=== PATIENT | male | born 1975 | race American Indian/Alaskan Native ===

== ENCOUNTER 2018-09-03 15:43 | Emergency (ER) | payer OTHER ==
--- NOTE | 2018-09-03 16:09 | Emergency Department Report ---
Chief Complaint: Sickle Cell Crisis Stated Complaint: CHEST PAIN/SICKLE CELL CRISIS Time Seen by Provider: 09/03/18 16:06 - HPI History of Present Illness: Pt has a hx sickle cell present with chest pain for a week has associated SOB and states it hurts to take a deep breath he states he was last hospitalized for sickle cell 1 year ago has not been taking sickle cell medications for three years VSS MSE complete MSE screening note: Focused history and physical exam performed. ED Disposition for MSE Condition: Stable
[2018-09-03 16:56] LABS: Basophils # (Auto) 0.1 K/mm3 (0.0-0.1); Eosinophils # (Auto) 0.3 K/mm3 (0.0-0.4); Eosinophils % (Auto) 4.1 % (0.0-4.3); Hematocrit 45.3 % (35.5-45.6); Hemoglobin 15.3 gm/dl (11.8-15.2); Lymphocytes # (Auto) 1.9 K/mm3 (1.2-5.4); Lymphocytes % (Auto) 28.9 % (13.4-35.0); Mean Corpuscular HGB Conc 34 % (32-34); Mean Corpuscular Volume 90 fl (84-94); Monocytes # (Auto) 0.5 K/mm3 (0.0-0.8); Monocytes % (Auto) 7.6 % (0.0-7.3); Platelet Count 270 K/mm3 (140-440); Red Blood Count 5.01 M/mm3 (3.65-5.03); Red Cell Distribution Width 14.3 % (13.2-15.2)
[2018-09-03 17:10] LABS: Alanine Aminotransferase 18 units/L (7-56); Albumin 4.2 g/dL (3.9-5); BUN/Creatinine Ratio 6; Blood Urea Nitrogen 4 mg/dL (9-20); Calcium 9.2 mg/dL (8.4-10.2); Hemolysis Index 14
--- NOTE | 2018-09-03 18:03 | XRay Report ---
PROCEDURE: XR CHEST ROUTINE 2V TECHNIQUE: PA and lateral views were obtained. HISTORY: cp, sickle cell COMPARISONS: FINDINGS: Heart size and pulmonary vasculature appear normal. No evidence of pulmonary edema pleural effusion o r infiltrate or mass. No acute bone abnormalities are visualized. IMPRESSION: Negative exam. This document is electronically signed by Phu Paz MD., September 03 2018 06:01:24 PM ET
[2018-09-03] MEDS ORDERED: NACL 0.9% 500 ML 500 ML IV ONE (19:46)
[2018-09-03] MEDS ORDERED: MORPHINE IV ONE (19:47)
[2018-09-03] MEDS ORDERED: TORADOL IV ONE (19:47)
--- NOTE | 2018-09-03 20:01 | Emergency Department Report ---
ED Chest Pain HPI - General Chief Complaint: Sickle Cell Crisis Stated Complaint: CHEST PAIN/SICKLE CELL CRISIS Time Seen by Provider: 09/03/18 16:06 Source: patient Mode of arrival: Ambulatory Limitations: No Limitations - History of Present Illness Initial Comments: 43-year-old [facility] male presents to the emergency department with a one-week history of midsternal nonradiating chest pain. The patient also says that he has a history of sickle cell disease. 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 He has not taken anything for his symptoms prior to arrival. He is an occasional smoker. He denies any family history of early cardiac disease. He denies any lower extremity swelling, back pain, fever, nausea, vomiting or diaphoresis. Severity scale (0 -10): 10 - Related Data Allergies Allergy/AdvReac Type Severity Reaction Status Date / Time No Known Allergies Allergy Verified 09/03/18 15:47 Heart Score - HEART Score History: Slightly suspicious EKG: Normal Age: < 45 Risk factors: 1-2 risk factors Troponin: < normal limit HEART Score: 1 - Critical Actions Critical Actions: 0-3 pts:0.9-1.7%risk of adverse cardiac event.Candidate for discharge ED Review of Systems ROS: Stated complaint: CHEST PAIN/SICKLE CELL CRISIS Other details as noted in HPI Comment: All other systems reviewed and negative Constitutional: denies: chills, fever Eyes: denies: eye pain, vision change ENT: denies: ear pain, throat pain Respiratory: denies: cough, shortness of breath Cardiovascular: chest pain. denies: palpitations Gastrointestinal: denies: abdominal pain, vomiting Genitourinary: denies: dysuria, frequency Musculoskeletal: denies: back pain, arthralgia Skin: denies: rash, lesions Neurological: denies: headache, weakness ED Past Medical Hx - Past Medical History Hx Sickle Cell Disease: Yes - Surgical History Past Surgical History?: No - Social History Smoking Status: Current Every Day Smoker Substance Use Type: None ED Physical Exam - General Limitations: No Limitations - Other Other exam information: GENERAL: The patient is well-developed well-nourished. HEENT: Normocephalic. Atraumatic. Patient has moist mucous membranes. EYES: Extraocular motions are intact. Pupils are equal and reactive to light bilaterally. NECK: Supple. Trachea is midline. CHEST/LUNGS: Clear to auscultation. There is no respiratory distress noted. Midsternal chest pain is reproducible to palpation of the chest wall. No crepitus or deformity. HEART/CARDIOVASCULAR: Regular. There is no tachycardia. There is no obvious murmur. ABDOMEN: Abdomen is soft, nontender. Patient has normal bowel sounds. There is no abdominal distention. SKIN: Skin is warm and dry. NEURO: The patient is awake, alert, and oriented. The patient is cooperative. The patient has no focal neurologic deficits. The patient has normal speech. MUSCULOSKELETAL: There is no tenderness or deformity. There is no evidence of acute injury. ED Course Vital Signs 09/03/18 09/03/18 09/03/18 16:06 19:46 20:00 Temperature 97.3 F L 97.8 F Pulse Rate 72 71 75 Respiratory 20 16 12 Rate Blood Pressure 157/105 150/108 Blood Pressure 149/96 [Left] O2 Sat by Pulse 100 100 100 Oximetry 09/03/18 21:00 Temperature Pulse Rate 60 Respiratory 16 Rate Blood Pressure 120/83 Blood Pressure [Left] O2 Sat by Pulse 100 Oximetry ELIZABETH score - Elizabeth Score Age > 65: (0) No Aspirin use within the Past 7 Days: (0) No 3 or more CAD Risk Factors: (0) No 2 or more Angina events in past 24 hrs: (0) No Known CAD with more than 50% Stenosis: (0) No Elevated Cardiac Markers: (0) No ST Deviation Greater than 0.5mm: (0) No ELIZABETH Score: 0 ED Medical Decision Making - Lab Data Result diagrams: 09/03/18 16:22 09/03/18 16:22 - EKG Data -: EKG Interpreted by Mi EKG shows normal: sinus rhythm, axis, intervals, QRS complexes (LVH), ST-T waves Rate: normal - EKG Data When compared to previous EKG there are: previous EKG unavailable Interpretation: LVH - Radiology Data Radiology results: image reviewed interpreted by me: Chest x-ray does not show any pneumothorax, pleural effusion, pneumonia or obvious focal consolidation. - Medical Decision Making This patient presents with a one-week history of midsternal nonradiating chest pain and complains of a possible sickle cell pain crisis. Vital signs stable throughout his ED course. EKG was normal without ST elevation KS, ischemia or dysrhythmia and just showed some questionable LVH. Labs were unremarkable including negative troponins 2 and a negative d-dimer. In terms of his sickle cell, his hemoglobin was greater than 15 and he had a reticulocyte count less t farley 1. Patient was given some pain medication and NSAIDs. Chest x-ray did not show any pleural effusions, pneumothorax, focal consolidation, pneumonia, or any other acute process. Patient appears safe for discharge home at this time. He has a low heart school criteria and a ELIZABETH score of 0. His pain is reproducible and more consistent with costochondritis. He was given a referral for primary care and cardiology. Return to the ER with any worsening of his symptoms or any acute distress. - Differential Diagnosis costochondritis, KS, PE, GERD Critical Care Time: No Critical care attestation.: If time is entered above; I have spent that time in minutes in the direct care of this critically ill patient, excluding procedure time. ED Disposition Clinical Impression: Atypical chest pain, Costochondritis Hypertension Qualifiers: Hypertension type: essential hypertension Qualified Code(s): I10 - Essential (primary) hypertension Disposition: DC- TO HOME OR SELFCARE Is pt being admited?: No Condition: Stable Instructions: Chest Pain (ED), Costochondritis (ED), Hypertension (ED) Additional Instructions: Please follow up with a primary care physician in the next few days. I am also giving you a referral for a local parts counter clerk, Dr. Diamond. Return to the em ergency Department with any worsening of your symptoms or any acute distress. Referrals: TAZ RAMOS MD [Staff Physician] - 2-3 Days SANNA DIAMOND MD [Staff Physician] - 2-3 Days [facility] [Outside] - 2-3 Days Time of Disposition: 21:23
[2018-09-03 21:34] VITALS: BP 120/83
== END 2018-09-03 21:45 | disposition home or self-care (01) ==
LOC: ED 15:43
DX: M94.0 Chondrocostal junction syndrome [Tietze] (principal); I10 Essential (primary) hypertension
CPT/HCPCS: 36415; 71046; 80053; 84484; 85025; 85045; 85379; 93005; 93010; 96374; 96375; 99284; J1885; J2270; J7040